=== PATIENT | female | born 1955 | race Caucasian/White ===

== ENCOUNTER → 2024-09-26 | Outpatient (CLI) | payer MEDICARE, SELFPAY ==
--- NOTE | 2024-09-26 14:07 | ECHOD_ITS ---
Reason For Study: MITRAL VALVE PROLAPSE Procedure This was a 2D Doppler, Color Flow transthoracic echocardiogram. Exam performed in department. Left Ventricle Normal LV size. Left ventricular systolic function is normal. The left ventricular ejection fraction is 60 %. Stage 1 diastolic dysfunction. No regional wall motion abnormalities noted. Right Ventricle Normal RV size. Normal systolic function. Atria Normal left atrium. Normal right atrium. Mitral Valve Normal mitral valve. There is mild mitral annular calcification. Tricuspid Valve Normal tricuspid valve. Mild tricuspid valve insufficiency. Pulmonary artery systolic pressure is 24 mmHg. Aortic Valve Trisinus/trileaflet aortic valve. Pulmonic Valve Normal pulmonic valve. Great Vessels Normal aortic root. The pulmonary artery is normal size. Normal inferior vena cava. Pericardium/Pleural No pericardial effusion. MMode/2D Measurements & Calculations LVIDd: 4.2 cm IVSd: 1.0 cm LVOT diam: 1.9 cm LVIDs: 2.9 cm LVPWd: 0.81 cm LVOT area: 2.7 cm2 RVDd: 3.4 cm FS: 30.6 % _ asc Aorta Diam: 3.5 cm LAV(MOD-bp): 42.9 ml LVAd ap4: 20.4 cm2 LAV(MOD-bp) Indexed: 21.1 ml/m2 LVLd ap4: 7.0 cm LAV(MOD-sp2): 48.5 ml EDV(MOD- sp4): 49.8 ml LAV(MOD-sp4): 37.3 ml EDV(sp4- el): 50.2 ml LVAs ap4: 12.3 cm2 LVLs ap4: 6.2 cm ESV(MOD- sp4): 22.0 ml ESV(sp4- el): 20.6 ml EF(MOD- sp4): 55.9 % EF(sp4- el): 59.1 % _ LVAd ap2: 21.8 cm2 SV(MOD-sp4): 27.8 ml SV(MOD- sp2): 37.1 ml LVLd ap2: 6.9 cm SI(MOD-sp4): 13.7 ml/m2 SI(MOD- sp2): 18.2 ml/m2 EDV(MOD-sp2): 59.0 ml EDV(sp2-el): 58.3 ml LVAs ap2: 12.4 cm2 LVLs ap2: 6.0 cm ESV(MOD-sp2): 22.0 ml ESV(sp2-el): 21.8 ml EF(MOD-sp2): 62.8 % _ SV(sp4-el): 29.6 ml Ao sinus diam: 3.[address] Junction: 3.0 cm _ LA dimension(2D): 3.7 cm LA A4 area: 15.4 cm2 RA A4 area: 8.6 cm2 _ TAPSE: 1.8 cm Time Measurements MV dec time: 0.22 sec Doppler Measurements & Calculations MV E max werner: 98.0 cm/sec Lat Peak E' Werner: 10.1 cm/sec Med Peak E' Werner: 10.3 cm/sec MV A max werner: 105.6 cm/sec E/E' lat: 9.7 E/E' med: 9.5 MV E/A: 0.93 _ MV dec slope: 451.5 cm/sec2 Ao V2 max: 136.4 cm/sec LV V1 max: 105.3 cm/sec Ao max P.4 mmHg LV V1 max P.4 mmHg Ao V2 mean: 93.3 cm/sec LV V1 mean P.0 mmHg Ao mean P.9 mmHg LV V1 mean: 65.6 cm/sec Ao V2 VTI: 29.3 cm LV V1 VTI: 23.4 cm AV (velocity ratio): 0.80 SHELTON(I,D): 2.1 cm2 SHELTON(V,D): 2.1 cm2 _ SV(LVOT): 62.9 ml PA V2 max: 85.9 cm/sec TR max werner: 228.9 cm/sec TR max P.0 mmHg ECHO/Echo Complete Interpretation Summary Normal LV size. Left ventricular systolic function is normal. The left ventricular ejection fraction is 60 %. Stage 1 diastolic dysfunction. Ordering Physician: CHON PEREZ Referring Physician: CHON PEREZ Performed By: Lissette Huynh RDCS
== END | disposition home or self-care (01) ==
LOC: CVS 14:06
DX: I34.1 Nonrheumatic mitral (valve) prolapse (principal); R94.31 Abnormal electrocardiogram [ECG] [EKG]; R06.02 Shortness of breath; R00.2 Palpitations
CPT/HCPCS: 93306